=== PATIENT | female | born 1980 | race Caucasian/White ===

== ENCOUNTER 2021-10-14 20:09 | Emergency (ER) | payer OTHER ==
[~2021-10-14] VITALS: Ht 175.3 cm; Wt 61.2 kg
--- NOTE | 2021-10-14 20:35 | NUR ---
No Beds available in [facility] ER at this time, placed back in waiting room.
--- NOTE | 2021-10-14 21:00 | NUR ---
Patient was called to be placed in room in the ER, but patient was not present in the waiting room.
--- NOTE | 2021-10-14 21:15 | NUR ---
Patient was called to be placed in room but not present in the waiting room.
--- NOTE | 2021-10-14 21:20 | NUR ---
PATIENT WAS TRIAGED BUT WAS NOT SEEN BY [facility].
== END 2021-10-14 21:20 | disposition left against medical advice (07) ==
LOC: ER 20:15
DX: Z53.21 Procedure and treatment not carried out due to patient leaving prior to being seen by health care provider (principal)